=== PATIENT | male | born 1985 | race Two or more races ===

== ENCOUNTER 2017-12-18 03:12 | Emergency (ER) | payer SELFPAY ==
[~2017-12-18] VITALS: Ht 182.9 cm; Wt 63.5 kg
[2017-12-18 03:37] VITALS: BP 128/74
[2017-12-18] MEDS ORDERED: MECLIZINE HCL 25 MG TAB PO ONE (07:00)
== END 2017-12-18 07:14 | disposition home or self-care (01) ==
LOC: ER 03:13
DX: R42 Dizziness and giddiness (principal); R53.1 Weakness; F17.210 Nicotine dependence, cigarettes, uncomplicated; Z88.0 Allergy status to penicillin
CPT/HCPCS: 70450